=== PATIENT | female | born 1975 | race Caucasian/White ===

== ENCOUNTER → 2016-10-21 | Outpatient (CLI) | payer BC ==
--- NOTE | 2016-10-22 12:12 | REP ---
LEFT WRIST SERIES, COMPLETE: 10/21/2016. Clinical history: Ulnar aspect wrist pain. Wrist injury. Findings: There are no prior studies. Distal radius and ulna show no fracture or focal lesion. Carpal bones and their joint spaces are preserved. No subluxation or dislocation. The CMC joints, metacarpals and MCP joints visible were intact. Impression: 1. No visible or displaced fracture, avulsion, subluxation or other acute finding about the wrist. Signed by Gilberto Miranda MD 10/22/2016 09:34 A
== END ==
LOC: M WUC 13:45
PROVIDERS: ATTEND Physician Assistant
DX: M25.532 Pain in left wrist (principal)